=== PATIENT | male | born 1955 | race African-American/Black ===

== ENCOUNTER 2017-09-01 18:29 | Observation (INO) | payer OTHER ==
[~2017-09-01] VITALS: Ht 188 cm; Wt 92.8 kg
[2017-09-01 18:42] LABS: EOSINOPHIL (%) 0.6 % (0-5); IMMATURE GRANULOCYTE (%) 0.1 % (0.0-0.7); INSTRUMENT ABS NEUTROPHIL CT 4.1 K/uL; LYMPHOCYTE COUNT 2.2 K/uL (1.0-2.8); MCH 29.5 PG (29.0-34.0); MCHC 32.6 G/DL (30.0-36.0); MCV 90.7 FL (86-99); MEAN PLAT.VOLUME 10.8 uM^3 (9.0-12.4); MONOCYTE COUNT 0.5 K/uL (0-0.8); NEUTROPHIL (%) 60.3 % (45-76); NEUTROPHIL COUNT 4.1 K/uL (1.8-6.4); PLATELET COUNT 216 K/uL (156-360); RBC DIS.WIDTH-CV 13.4 % (11.8-14.6); RBC DIS.WIDTH-SD 44.8 % (39-53); WHITE BLOOD COUNT 6.8 K/uL (4.1-10.2)
[2017-09-01] MEDS ORDERED: LO-DOSE ASPIRIN81 M1 PO (18:54)
[2017-09-01 18:56] LABS: AMYLASE 95 IU/L (1-118)
[2017-09-01 18:57] LABS: CHLORIDE 107 mEq/L (99-109); POTASSIUM 3.7 mEq/L (3.7-5.4); SODIUM 143 mEq/L (136-147)
[2017-09-01 18:58] LABS: GLUCOSE 127 mg/dL (70-99)
[2017-09-01 19:00] LABS: ANION GAP 12 MEQ/L (2-14)
[2017-09-01 19:01] LABS: SERUM ETHYL ALCOHOL < 10 mg/dL
[2017-09-01 19:03] LABS: UREA NITROGEN (BUN) 16 mg/dL (9-23)
[2017-09-01 19:05] LABS: LIPASE 21 U/L (1.0-51.0)
[2017-09-01 19:12] LABS: GFR ESTIMATE (CALCULATED) 38 mL/min/
[2017-09-01 20:13] LABS: ADD MIUA? NO; BILIRUBIN NEGATIVE; BLOOD NEGATIVE; COLOR YELLOW ((YELLOW)); GLUCOSE (STRIP) NEGATIVE; KETONES NEGATIVE; LEUKOCYTES NEGATIVE; NITRITE NEGATIVE; PROTEIN (STRIP) 30; UCUL ADDED? NO; UROBILINOGEN 0.2 MG/DL (0.2-1.0)
[2017-09-01 20:22] LABS: AMPHETAMINE NEGATIVE (500 ng/mL); BARBITURATES NEGATIVE (200 ng/mL); BENZODIAZEPINES NEGATIVE (150 ng/mL); COCAINE NEGATIVE (150 ng/mL); INTERNAL CONTROLS VALID? YES; METHADONE NEGATIVE (200 ng/mL); METHAMPHETAMINE NEGATIVE (500 ng/mL); OPIATES (MORPHINE) NEGATIVE (100 ng/mL); OXYCODONE NEGATIVE (100 ng/mL); PHENCYCLIDINE NEGATIVE (25 ng/mL); PROPOXYPHENE NEGATIVE (300 ng/mL); THC CANNABINOIDS NEGATIVE (50 ng/mL); TRICYCLIC ANTIDEPRESSANTS NEGATIVE (300 ng/mL)
[2017-09-02 00:06] VITALS: BP 163/88
[2017-09-02 03:55] VITALS: BP 127/78
[2017-09-02 05:42] LABS: HEMATOCRIT 35.7 % (38.0-50.0); MCH 30.8 PG (29.0-34.0); MCHC 33.3 G/DL (30.0-36.0); MCV 92.5 FL (86-99); MEAN PLAT.VOLUME 11.5 uM^3 (9.0-12.4); PLATELET COUNT 184 K/uL (156-360); RBC DIS.WIDTH-CV 13.8 % (11.8-14.6); RBC DIS.WIDTH-SD 46.7 % (39-53); RED BLOOD COUNT 3.86 M/uL (4.00-5.50); WHITE BLOOD COUNT 6.7 K/uL (4.1-10.2)
[2017-09-02 06:23] LABS: ANION GAP 8 MEQ/L (2-14); CHLORIDE 108 MEQ/L (99-109); GFR ESTIMATE (CALCULATED) 57 mL/min/; GLUCOSE 130 mg/dL (70-99); POTASSIUM 3.7 MEQ/L (3.7-5.4); SAMPLE HEMOLYSIS CHECK 0; SAMPLE ICTERIC CHECK 0; SAMPLE LIPEMIA CHECK 0; SODIUM 142 MEQ/L (136-147); UREA NITROGEN (BUN) 15 mg/dL (9-23)
[2017-09-02 07:48] VITALS: BP 140/87
[2017-09-02] MEDS ORDERED: PERCOCET 5/31 TABLET PO (09:47)
[2017-09-02] MEDS ORDERED: DOCUSATE SODIU100 MG PO (09:47)
[2017-09-02 19:23] VITALS: BP 150/94
== END 2017-09-02 20:07 | disposition home or self-care (01) ==
LOC: TRA 18:29 → EDOF 22:39 → 3EAST 22:39 → ENRESERV 22:41 → 3EAST 23:44
PROVIDERS: Emergency Medicine; Internal Medicine
DX: S82.871A Displaced pilon fracture of right tibia, initial encounter for closed fracture (principal); I10 Essential (primary) hypertension; I25.10 Atherosclerotic heart disease of native coronary artery without angina pectoris; Z95.5 Presence of coronary angioplasty implant and graft; E78.5 Hyperlipidemia, unspecified; Z79.82 Long term (current) use of aspirin; I71.4 Abdominal aortic aneurysm, without rupture; K76.89 Other specified diseases of liver; Q61.3 Polycystic kidney, unspecified; Z87.891 Personal history of nicotine dependence; Z23 Encounter for immunization; V09.20XA Pedestrian injured in traffic accident involving unspecified motor vehicles, initial encounter; Y92.481 Parking lot as the place of occurrence of the external cause
CPT/HCPCS: 70450; 71260; 72125; 73590; 73600; 73700; 74177; 80048; 81003; 82150; 83690; 85025; 85027; 86850; 86900; 86901; 99281; 99285; G0378; G0480; J1650; J2270; J2405; J3010; J7030

== ENCOUNTER → 2017-09-03 | Outpatient (CLI) | payer MEDICARE ==
[~2017-09-03] MED LIST: DOCUSATE SODIU100 MG PO; LO-DOSE ASPIRIN81 M1 PO; PERCOCET 5/31 TABLET PO
== END | disposition home or self-care (01) ==
LOC: CDC 15:25
DX: I51.7 Cardiomegaly (principal); R94.31 Abnormal electrocardiogram [ECG] [EKG]; S82.851A Displaced trimalleolar fracture of right lower leg, initial encounter for closed fracture
CPT/HCPCS: 93000

== ENCOUNTER 2017-09-09 11:50 | Day surgery (SDC) | payer OTHER ==
[~2017-09-09] VITALS: Ht 188 cm; Wt 93.3 kg
[~2017-09-09 11:50] MED LIST changes: +CYCLOBENZAPRINE5 MG PO; +MELOXICAM15 MG PO; +METOPROLOL SUCC25 MG PO
[2017-09-09 12:17] VITALS: BP 162/97
[2017-09-10 00:35] VITALS: BP 131/83
[2017-09-10 03:15] VITALS: BP 140/88
[2017-09-10 07:28] VITALS: BP 120/72
[2017-09-10 11:22] VITALS: BP 136/88
== END 2017-09-10 11:57 | disposition home or self-care (01) ==
LOC: SDC 11:50 → 3EAST 21:30 → 2SOUTH 21:30 → ENRESERV 21:45 → 3EAST 23:40
DX: S82.851A Displaced trimalleolar fracture of right lower leg, initial encounter for closed fracture (principal); V23.4XXA Motorcycle driver injured in collision with car, pick-up truck or van in traffic accident, initial encounter; Y93.I9 Activity, other involving external motion; Y92.410 Unspecified street and highway as the place of occurrence of the external cause; I10 Essential (primary) hypertension; Z95.5 Presence of coronary angioplasty implant and graft; R94.31 Abnormal electrocardiogram [ECG] [EKG]; I25.2 Old myocardial infarction
CPT/HCPCS: 73610; 76000; 82306; 94799; C1713; G0378; G8978 GP CJ; G8979 GP CH; G8987 GO CJ; G8988 GO CH; J0360; J0690; J1100; J1170; J2250; J2405; J3010; J7030; J7120; S0020

== ENCOUNTER 2017-09-28 10:53 | Inpatient (IN) | payer OTHER ==
[~2017-09-28] VITALS: Ht 188 cm; Wt 75.7 kg
[2017-09-28 12:39] LABS: HEMATOCRIT 34.5 % (38.0-50.0); MCH 28.8 PG (29.0-34.0); MCHC 31.6 G/DL (30.0-36.0); MCV 91.3 FL (86-99); MEAN PLAT.VOLUME 10.3 uM^3 (9.0-12.4); RBC DIS.WIDTH-CV 13.2 % (11.8-14.6); RBC DIS.WIDTH-SD 44.1 % (39-53); RED BLOOD COUNT 3.78 M/uL (4.00-5.50); WHITE BLOOD COUNT 6.5 K/uL (4.1-10.2)
[2017-09-28 12:41] LABS: PLATELET COUNT 592 K/uL (156-360)
[2017-09-28 13:09] LABS: ANION GAP 13 MEQ/L (2-14); CHLORIDE 101 MEQ/L (99-109); GFR ESTIMATE (CALCULATED) 37 mL/min/; GLUCOSE 97 mg/dL (70-99); POTASSIUM 5.2 MEQ/L (3.7-5.4); SAMPLE HEMOLYSIS CHECK 0; SAMPLE ICTERIC CHECK 0; SAMPLE LIPEMIA CHECK 0; SODIUM 137 MEQ/L (136-147); UREA NITROGEN (BUN) 26 mg/dL (9-23)
[2017-09-28 13:11] LABS: INTER. NORMALIZED RATIO 1.7; PROTHROMBIN TIME 19.5 SEC (10.2-12.9)
[2017-09-28 13:14] LABS: PTT 32.8 SEC (25-37)
[2017-09-28] MEDS ORDERED: ELIQUIS5 MG PO (14:38)
[2017-09-28] MEDS ORDERED: LISINOPRIL10 MG PO (14:39)
[2017-09-28] MEDS ORDERED: ERGOCALCIF50000 UNIT PO (14:41)
[2017-09-28] MEDS ORDERED: SULFAMETHOXAZO1 EAC4 PO (14:42)
[2017-09-28] MEDS ORDERED: CEPHALEXIN500 MG PO (14:43)
[2017-09-28 15:51] LABS: METH RESISTANT S AUREUS PCR NEGATIVE (NEGATIVE)
[2017-09-28 15:52] LABS: PROBE CHECK PASS; SPECIMEN PROCESSING CONTROL PASS
[2017-09-28 17:08] VITALS: BP 148/74
[2017-09-28 19:56] VITALS: BP 124/68
[2017-09-28 23:36] VITALS: BP 134/69
[2017-09-29 07:25] VITALS: BP 129/67
[2017-09-29 12:28] VITALS: BP 143/77
[2017-09-29 16:20] VITALS: BP 128/72
[2017-09-29 19:26] VITALS: BP 136/69
[2017-09-29 23:08] VITALS: BP 134/77
[2017-09-30 03:27] VITALS: BP 135/72
[2017-09-30 08:04] VITALS: BP 139/72
[2017-09-30 12:32] LABS: HEMATOCRIT 31.8 % (38.0-50.0); MCHC 31.8 G/DL (30.0-36.0); MCV 94.4 FL (86-99); MEAN PLAT.VOLUME 10.1 uM^3 (9.0-12.4); PLATELET COUNT 474 K/uL (156-360); RBC DIS.WIDTH-CV 13.2 % (11.8-14.6); RBC DIS.WIDTH-SD 45.8 % (39-53); RED BLOOD COUNT 3.37 M/uL (4.00-5.50); WHITE BLOOD COUNT 6.6 K/uL (4.1-10.2)
[2017-09-30 13:20] LABS: ANION GAP 8 MEQ/L (2-14); CHLORIDE 108 MEQ/L (99-109); GFR ESTIMATE (CALCULATED) 53 mL/min/; GLUCOSE 113 mg/dL (70-99); POTASSIUM 4.7 MEQ/L (3.7-5.4); SAMPLE HEMOLYSIS CHECK 0; SAMPLE ICTERIC CHECK 0; SAMPLE LIPEMIA CHECK 0; SODIUM 140 MEQ/L (136-147); UREA NITROGEN (BUN) 23 mg/dL (9-23)
[2017-09-30 16:12] VITALS: BP 125/70
[2017-09-30 19:24] VITALS: BP 164/90
[2017-09-30 23:47] VITALS: BP 141/84
[2017-10-01 04:25] VITALS: BP 140/72
[2017-10-01 08:33] VITALS: BP 145/77
[2017-10-01 11:53] VITALS: BP 144/79
[2017-10-01 15:22] VITALS: BP 130/80
[2017-10-01 23:22] VITALS: BP 129/86
[2017-10-02 08:19] VITALS: BP 134/77
[2017-10-02] MEDS ORDERED: GABAPENTIN300 MG PO (10:03)
[2017-10-02] MEDS ORDERED: MORPHINE SULFAT15 MG PO (10:03)
[2017-10-02 15:56] VITALS: BP 133/70
== END 2017-10-02 17:02 | disposition home or self-care (01) | DRG 908 ==
LOC: 3EAST 10:53 → ENRESERV 10:57 → 3EAST 11:01
PROVIDERS: Orthopaedic Surgery
PROC: 0SBF0ZZ Excision of Right Ankle Joint, Open Approach (ICD-10-PCS; principal; 2017-09-28)
DX: T81.30XA Disruption of wound, unspecified, initial encounter (principal); M86.9 Osteomyelitis, unspecified; I25.10 Atherosclerotic heart disease of native coronary artery without angina pectoris; I10 Essential (primary) hypertension; Z83.3 Family history of diabetes mellitus; E78.5 Hyperlipidemia, unspecified; S82.851D Displaced trimalleolar fracture of right lower leg, subsequent encounter for closed fracture with routine healing
CPT/HCPCS: 76937; 80048; 85027; 85610; 85730; 87070; 87075; 87077; 87186; 87205; 87641; J0690; J0692; J1100; J1170; J1885; J2250; J2405; J3010; J7042; J7050; S0020

== ENCOUNTER 2018-05-20 08:59 | Observation (INO) | payer OTHER ==
[~2018-05-20] VITALS: Ht 188 cm; Wt 88.5 kg
[~2018-05-20 08:59] MED LIST changes: +CEPHALEXIN500 MG PO; +ELIQUIS5 MG PO; +GABAPENTIN300 MG PO; +LISINOPRIL10 MG PO; +MORPHINE SULFAT15 MG PO; +SULFAMETHOXAZO1 EAC4 PO; +VITAMIN D31000 UNI2 PO
[2018-05-20 09:40] LABS: BASOPHIL (%) 0.5 % (0-1); EOSINOPHIL (%) 0.8 % (0-5); EOSINOPHIL COUNT 0.1 K/uL (0-0.3); HEMATOCRIT 40.3 % (38.0-50.0); HEMOGLOBIN 13.4 G/DL (12.5-16.6); IMMATURE GRANULOCYTE (%) 0.2 % (0.0-0.7); LYMPHOCYTE (%) 37.1 % (15-42); LYMPHOCYTE COUNT 2.2 K/uL (1.0-2.8); MCH 30.3 PG (29.0-34.0); MCHC 33.3 G/DL (30.0-36.0); MCV 91.2 FL (86-99); MONOCYTE (%) 5.2 % (3-12); MONOCYTE COUNT 0.3 K/uL (0-0.8); NEUTROPHIL (%) 56.2 % (45-76); NEUTROPHIL COUNT 3.3 K/uL (1.8-6.4); PLATELET COUNT 265 K/uL (156-360); RBC DIS.WIDTH-CV 14.6 % (11.8-14.6); RBC DIS.WIDTH-SD 48.3 % (39-53); RED BLOOD COUNT 4.42 M/uL (4.00-5.50)
[2018-05-20 09:46] LABS: INTER. NORMALIZED RATIO 1.4
[2018-05-20 09:49] LABS: CHLORIDE 110 mEq/L (99-109); SODIUM 139 mEq/L (136-147)
[2018-05-20 09:51] LABS: GLUCOSE 160 mg/dL (70-99)
[2018-05-20 09:55] LABS: CREATININE 1.6 mg/dL (0.6-1.3); GFR ESTIMATE (CALCULATED) 57 mL/min/ (58.99-99999); UREA NITROGEN (BUN) 21 mg/dL (9-23)
[2018-05-20 10:01] LABS: TROP-I INTERPRETATION NEGATIVE; TROPONIN-I 0.08 ng/mL (0.0-0.30)
[2018-05-20 10:22] LABS: POTASSIUM 3.9 mEq/L (3.7-5.4)
[2018-05-20 16:24] VITALS: BP 162/74
[2018-05-20 16:45] LABS: TROP-I INTERPRETATION NEGATIVE; TROPONIN-I 0.09 ng/mL (0.0-0.30)
[2018-05-20 19:23] VITALS: BP 135/94
[2018-05-20 22:14] LABS: TROP-I INTERPRETATION NEGATIVE
[2018-05-20 23:33] VITALS: BP 118/75
[2018-05-21 03:20] VITALS: BP 115/61
[2018-05-21 05:36] LABS: HEMATOCRIT 35.7 % (38.0-50.0); HEMOGLOBIN 11.5 G/DL (12.5-16.6); MCH 29.6 PG (29.0-34.0); MCHC 32.2 G/DL (30.0-36.0); PLATELET COUNT 220 K/uL (156-360); RBC DIS.WIDTH-CV 14.3 % (11.8-14.6); RBC DIS.WIDTH-SD 48.2 % (39-53); RED BLOOD COUNT 3.88 M/uL (4.00-5.50); WHITE BLOOD COUNT 5.2 K/uL (4.1-10.2)
[2018-05-21 05:57] LABS: CHLORIDE 105 MEQ/L (99-109); CREATININE 1.7 MG/DL (0.6-1.3); GFR ESTIMATE (CALCULATED) 53 mL/min/ (58.99-99999); HDL CHOLESTEROL 27 MG/DL (Desirable>=40); LDL CHOLESTEROL 120 mg/dL (Desirable<100); NON-HDL CHOLESTEROL 137 mg/dL (Desirable<160); POTASSIUM 3.9 MEQ/L (3.7-5.4); SODIUM 142 MEQ/L (136-147); TOTAL CHOLESTEROL 164 mg/dL (Desirable<200); TRIGLYCERIDES 85 MG/DL (Normal: <150); UREA NITROGEN (BUN) 18 mg/dL (9-23)
[2018-05-21 06:00] LABS: GLUCOSE 119 mg/dL (70-99)
[2018-05-21 08:05] VITALS: BP 134/81
[2018-05-21 11:18] LABS: HEMOGLOBIN A1c (GLYCOHEMOGLOB) 6.2 % (Below 5.7)
[2018-05-21 12:26] VITALS: BP 128/76
[2018-05-21] MEDS ORDERED: LASIX40 MG PO (13:35)
[2018-05-21 15:45] VITALS: BP 114/82
== END 2018-05-21 17:33 | disposition home or self-care (01) ==
LOC: EME 08:59 → ENRESERV 12:46 → 5SOUTH 12:49 → EDOF 12:49 → ENRESERV 12:56 → 5SOUTH 15:55
PROVIDERS: Emergency Medicine; Internal Medicine
PROC: B246ZZZ Ultrasonography of Right and Left Heart (ICD-10-PCS; principal; 2018-05-20)
DX: I13.0 Hypertensive heart and chronic kidney disease with heart failure and stage 1 through stage 4 chronic kidney disease, or unspecified chronic kidney disease (principal); I50.9 Heart failure, unspecified; N18.3 Chronic kidney disease, stage 3 (moderate); Z86.718 Personal history of other venous thrombosis and embolism; Z79.01 Long term (current) use of anticoagulants; I42.9 Cardiomyopathy, unspecified; I25.10 Atherosclerotic heart disease of native coronary artery without angina pectoris; Z95.5 Presence of coronary angioplasty implant and graft; R05 Cough; R60.0 Localized edema; Z87.891 Personal history of nicotine dependence; I25.2 Old myocardial infarction; Z79.82 Long term (current) use of aspirin; E87.2 Acidosis; I27.20 Pulmonary hypertension, unspecified; I08.1 Rheumatic disorders of both mitral and tricuspid valves
CPT/HCPCS: 36415; 71275; 74177; 80048; 80053; 80061; 83036; 83880; 83880 GA; 84443 GA; 84484; 84999; 85025; 85027; 85379; 85610; 93005; 93306; 99281; 99285; G0378; J1940; J2405; J7040